=== PATIENT | female | born 1975 | race Caucasian/White ===

== ENCOUNTER 2017-06-06 02:07 | Emergency (ER) | payer MEDICARE, OTHER ==
[2017-06-06] MEDS: morphine 2 MG INJ IV ×2 (02:40→03:44)
[2017-06-06] MEDS: ONDANSETRON 4 MG INJ IV (02:40)
[2017-06-06 02:58] LABS: ADD MAN DIFF? NO
[2017-06-06 03:01] LABS: BASOPHIL # 0.1 10^3/ul (0.0-0.1); BASOPHILS % 0.5 % (0.0-2.0); EOSINOPHILS # 0.2 10^3/ul (0.0-0.5); EOSINOPHILS % 1.7 % (0.0-7.0); HEMATOCRIT 42.7 % (37.0-47.0); HEMOGLOBIN 14.5 g/dl (12.0-16.0); LYMPHOCYTES # 2.4 10^3/ul (0.8-2.9); LYMPHOCYTES % 21.7 % (15.0-51.0); MEAN CORPUSCULAR HEMOGLOBIN 31.2 pg (29.0-33.0); MEAN CORPUSCULAR VOLUME 91.8 fl (82.0-101.0); MEAN PLATELET VOLUME 10.1 fl (7.4-10.4); MONOCYTES % 8.9 % (0.0-11.0); NEUTROPHIL # 7.3 10^3/ul (1.6-7.5); NEUTROPHILS % 66.8 % (39.0-77.0); PLATELET COUNT 230 10^3/UL (140-415); RED BLOOD COUNT 4.65 10^6/ul (4.20-5.40); RED CELL DISTRIBUTION WIDTH 12.5 % (11.5-14.5)
[2017-06-06 03:01] LABS: WHITE BLOOD COUNT 10.9 10^3/ul (4.8-10.8)
[2017-06-06 03:18] LABS: ANION GAP 17 (8-16); BLOOD UREA NITROGEN 17 mg/dl (7-20); CALCIUM 9.1 mg/dl (8.4-10.2); CARBON DIOXIDE 29 mmol/L (21-31); CHLORIDE 97 mmol/L (97-110); CREATININE 1.19 mg/dl (0.44-1.00); GLUCOSE 347 mg/dl (70-220); POTASSIUM 4.2 mmol/L (3.5-5.1); SODIUM 139 mmol/L (135-144)
[2017-06-06] MEDS: SOD CHLORIDE 0.9% 1,000 ML IV (03:44)
[2017-06-06] MEDS: SOD CHLORIDE 0.9% 100 ML (03:45)
[2017-06-06] MEDS: IOHEXOL 300MG/ML 150 ML BTL (03:45)
[2017-06-06] MEDS ORDERED: CLINDAMYCIN 300 MG CAP PO (04:20)
== END 2017-06-06 04:35 | disposition home or self-care (01) ==
LOC: E/R 02:07
DX: L03.211 Cellulitis of face (principal); K04.7 Periapical abscess without sinus; E11.65 Type 2 diabetes mellitus with hyperglycemia; I10 Essential (primary) hypertension; I25.10 Atherosclerotic heart disease of native coronary artery without angina pectoris; Z79.82 Long term (current) use of aspirin; Z98.61 Coronary angioplasty status; Z79.84 Long term (current) use of oral hypoglycemic drugs
CPT/HCPCS: 70486; 71045; 80048; 85025; 96374; 96375; 96376; 99285-25